=== PATIENT | female | born 1970 | race Hispanic/Latino ===

== ENCOUNTER → 2024-07-16 | Outpatient (CLI) | payer OTHER ==
[2024-07-16 15:24] LABS: CREATININE 0.6 mg/dL (0.5-1.0); POTASSIUM 4.2 mmol/L (3.5-5.1)
== END | disposition home or self-care (01) ==
LOC: LAB 14:48
PROVIDERS: ATTEND Family Medicine
DX: R10.30 Lower abdominal pain, unspecified (principal)
CPT/HCPCS: 36415; 80048

== ENCOUNTER → 2024-08-13 | Outpatient (CLI) | payer OTHER ==
[~2024-08-13] MED LIST: IOHEXOL 350 MG/ML 100ML INFUS..BTL IV ONE
--- NOTE | 2024-08-13 10:45 | HMCIMG ---
CT ABDOMEN/PELVIS W/WO CONTRAS REASON: LOWER ABD PAIN COMPARISON: None. TECHNIQUE: Images are obtained from lung bases to symphysis pubis following IV contrast, 100 cc Omnipaque 350. FINDINGS: Lung bases are clear. There are some small cysts in the liver. There are no solid liver lesions.. There are small kidney cysts as well, kidneys are also otherwise normal with no mass, stone or hydronephrosis.. Spleen and pancreas appear unremarkable. The gallbladder appears normal as well. Bowel loops appear unremarkable. This includes normal appearance of the appendix There is no evidence of free fluid or intraperitoneal air. There are no focal fluid collections. Aorta and retroperitoneum appear normal as do pelvic soft tissue structures. The anterior abdominal wall is intact. Osseous structures appear unremarkable. IMPRESSION: 1. Small cysts in the liver and kidneys. 2. Otherwise unremarkable postcontrast CT abdomen and pelvis with attention to the left lower quadrant. CT was performed with one or more following dose reduction techniques: automated exposure control, adjustment of the mA and kv according to patient's size, or use of a iterative reconstruction technique.
== END | disposition home or self-care (01) ==
LOC: RAH 07-29 11:07
PROVIDERS: ATTEND Family Medicine
DX: N28.1 Cyst of kidney, acquired (principal); K76.89 Other specified diseases of liver; R10.30 Lower abdominal pain, unspecified; L03.011 Cellulitis of right finger; R10.2 Pelvic and perineal pain
CPT/HCPCS: 74178; Q9967